=== PATIENT | female | born 1950 | race Caucasian/White ===

== ENCOUNTER → 2017-11-10 | Outpatient (CLI) | payer MEDICARE, OTHER ==
--- NOTE | 2017-11-10 13:06 | KCIC ---
Three-view left ankle study HISTORY: Left ankle pain and swelling after slipping and rolling ankle yesterday. FINDINGS: No acute fracture or dislocation or osteolytic process is evident. The mortise ankle joint is intact. IMPRESSION: No acute fracture. Electronically signed by: Bc Reyes MD (11/10/2017 1:03 PM) [place] [id number]
== END | disposition home or self-care (01) ==
LOC: KCIC 12:15
PROVIDERS: ATTEND Nurse Practitioner Family
DX: M25.572 Pain in left ankle and joints of left foot (principal)
CPT/HCPCS: 73610